=== PATIENT | female | born 1975 | race African-American/Black ===

== ENCOUNTER 2019-09-28 02:43 | Emergency (ER) | payer SELFPAY ==
[~2019-09-28] VITALS: Ht 160 cm; Wt 69.2 kg
[2019-09-28 02:45] VITALS: BP 162/97
[2019-09-28] MEDS ORDERED: IBUPROFEN 600 MG TABLET ONE (03:00)
[2019-09-28] MEDS ORDERED: DIPHENHYDRAMINE 25 MG CAPSULE ONE (03:00)
--- NOTE | 2019-09-28 04:05 | NUR ---
SEE PAPER CHART.
== END 2019-09-28 04:06 ==
LOC: ED 02:47
DX: T78.40XA Allergy, unspecified, initial encounter (principal); L03.115 Cellulitis of right lower limb; L03.116 Cellulitis of left lower limb; X58.XXXA Exposure to other specified factors, initial encounter
CPT/HCPCS: 99283